=== PATIENT | female | born 1995 | race Hispanic/Latino ===

== ENCOUNTER 2023-02-09 22:17 | Emergency (ER) | payer OTHER, MEDICAID ==
[~2023-02-09] VITALS: Ht 160 cm; Wt 99.6 kg
[2023-02-09] MEDS ORDERED: ONDANSETRON 4MG INJ ONE (23:34)
[2023-02-09 23:48] LABS: BASOPHILS # (AUTO) 0.05 K/uL (0.00-0.20); BASOPHILS % (AUTO) 0.3 % (0.0-5.0); EOSINOPHILS # (AUTO) 0.13 K/uL (0.00-0.70); EOSINOPHILS % (AUTO) 0.8 % (0.0-8.0); HEMATOCRIT 37.4 % (36-48); LYMPHOCYTES # (AUTO) 2.7 K/uL (1.0-4.8); LYMPHOCYTES % (AUTO) 16.4 % (21.0-51.0); MEAN CORPUSCULAR HEMOGLOBIN 30.7 pg (27.0-33.0); MEAN CORPUSCULAR HGB CONC 34.5 g/dL (32.0-36.0); MONOCYTES # (AUTO) 1.2 K/uL (0.1-1.0); MONOCYTES % (AUTO) 7.3 % (3.0-13.0); NEUTROPHILS # (AUTO) 12.5 K/uL (1.8-7.7); NEUTROPHILS % (AUTO) 74.6 % (40.0-77.0); PLATELET COUNT (AUTO) 335 K/uL (130-400); RED CELL DISTRIBUTION WIDTH 12.2 % (11.0-15.5); WHITE BLOOD COUNT (AUTO) 16.7 K/uL (4.8-10.8)
[2023-02-09 23:50] LABS: APPEARANCE,URINE CLOUDY (CLEAR); BILIRUBIN,URINE NEGATIVE (NEGATIVE); COLOR,URINE YELLOW (YELLOW); GLUCOSE, URINE (UA) NEGATIVE (NEGATIVE); KETONES,URINE 40 mg/dL (NEGATIVE); LEUKOCYTE ESTERASE ,URINE 25 Leu/uL (NEGATIVE); NITRATE,URINE NEGATIVE (NEGATIVE); OCCULT BLOOD,URINE NEGATIVE (NEGATIVE); PROTEIN,URINE 600 mg/dL (NEGATIVE); UROBILINOGEN,URINE 3 mg/dL (0.2-1.0)
[2023-02-09 23:54] LABS: ADD UA MICROSCOPIC YES
[2023-02-09 23:57] LABS: MUCUS,URINE MANY LPF (None Seen); SQUAMOUS EPITHELIAL CELL,UR MOD /HPF (0-2); TRANSITIONAL EPI CELLS,URINE RARE /HPF (None Seen)
[2023-02-09 23:58] LABS: CREATININE 0.3 mg/dL (0.5-1.5); POTASSIUM 4.6 mmol/L (3.5-5.1)
[2023-02-10] MEDS ORDERED: ONDANSETRON 4MG INJ IVP ONE
[2023-02-10] MEDS ORDERED: 0.9%NACL 1000ML 1,000 ML IV ONE
[2023-02-10 00:11] LABS: ALBUMIN 3.5 g/dL (3.5-5.0); BILIRUBIN,TOTAL 0.5 mg/dL (0.2-1.0); TOTAL PROTEIN, SERUM 7.7 g/dL (6.0-8.3)
[2023-02-10] MEDS ORDERED: CEPH500B PO (03:28)
[2023-02-10] MEDS ORDERED: DOXY1TAB3 PO (03:28)
[2023-02-10] MEDS ORDERED: ONDA4TAB10 PO (03:28)
[2023-02-10] MEDS ORDERED: CEFTRIAXONE 1G VIAL IVPB ONE (03:30)
[2023-02-10 03:33] VITALS: BP 108/88; PULSE 84; RESP 16; O2SAT 97
== END 2023-02-10 03:39 | disposition home or self-care (01) ==
LOC: EDH 22:17
DX: O21.0 Mild hyperemesis gravidarum (principal); O23.41 Unspecified infection of urinary tract in pregnancy, first trimester; N39.0 Urinary tract infection, site not specified; O26.891 Other specified pregnancy related conditions, first trimester; I10 Essential (primary) hypertension; E78.00 Pure hypercholesterolemia, unspecified; Z3A.13 13 weeks gestation of pregnancy
CPT/HCPCS: 99284; 96361; 96375; 80053; 84702; 85025; 86900; 86901; 87088; 81001; 81025; 36415; 96365; J7030; J2405; J0696